=== PATIENT | male | born 1965 | race Caucasian/White ===

== ENCOUNTER 2023-09-23 15:02 | Emergency (ER) | payer BC, SELFPAY ==
[2023-09-23 15:16] VITALS: BP 115/69; PULSE 69; RESP 18; TEMP 36.3; O2SAT 96; BMI 24.4
--- NOTE | 2023-09-23 17:46 | CT_ITS ---
Patient: JOSE ALBERT Facility:?[facility] Patient ID:?[id number] Site Patient ID:?[id number]. Site :?[id number] Study:?CT-ST Neck w/ 95cc [id number]/15/2024 6:35:32 PM Ordering Physician:Candido Earl Final Report: INDICATION: Jaw/neck swelling. TECHNIQUE: CT of the neck with 95 cc Isovue 370 iodinated contrast agent. Coronal and sagittal reconstructions are included. COMPARISON: None. FINDINGS: There is left facial and submandibular region soft tissue swelling and inflammatory fat stranding. There is an oval low-density collection tracking along the left mandibular ramus medial surface/undersurface, located within the lingual side of the left laborer space and submandibular space which measures up to 24 x 26 millimeters in axial plane and 39 millimeters in craniocaudal plane. No discrete surrounding capsule. Findings compatible with left sublingual/submandibular cellulitis with phlegmon/early abscess. There is a left mandibular molar tooth extraction site, likely reflecting infectious source. Inflammatory changes extend into the left parapharyngeal space. Prominent left upper cervical lymph nodes, reactive in etiology. Oropharynx and nasopharynx within normal limits. The supraglottic, glottic and infraglottic larynx are normal. The airway including the trachea is normal and is patent. Parotid glands are normal. Right submandibular gland is normal. Left- sided submandibular gland as slightly enlarged, likely reflecting reactive inflammation. The thyroid gland is normal in appearance. The vascular structures opacify normally with contrast material. No suspicious lytic or blastic osseous lesions. Advanced disc degeneration C4-5, C5-6 and C6-7. Mild disc degeneration elsewhere. Visualized paranasal sinuses and mastoid air cells are clear. Visualized orbital and intracranial contents are normal. Supraclavicular regions, mediastinum and soft tissues of the imaged chest wall are normal. Visualized portions of the upper lungs are clear. IMPRESSION: 1. Findings compatible with left lingual side laborer/submandibular space cellulitis and accompanying deep fluid collection reflecting phlegmon/early abscess. Findings presumably related to left mandibular molar tooth extraction site. No evidence of airway compromise. Please note that all CT scans at this facility use dose modulation, iterative reconstruction, and/or weight-based dosing when appropriate to reduce radiation dose to as low as reasonably achievable. Dictated by Trace Lara MD @ 09/23/2023 7:03:39 PM Signed by:?Trace Lara MD @09/23/2023 7:03:39 PM (Electronic Signature)
--- NOTE | 2023-09-23 18:01 | ED_ITS ---
HPI - General Adult General Chief complaint: Dental/Oral/Mouth Injury/Pain Stated complaint: Infection post bottom left tooth extraction Time Seen by Provider: 09/23/23 17:42 Source: patient Mode of arrival: ambulatory Limitations: no limitations History of Present Illness HPI narrative: 58-year-old male presenting today with mouth pain. Patient had a tooth pulled about 2 weeks ago in the last couple days has noticed that he has had increased swelling of the left lower jaw. He has increasing pain and he is unable to open his mouth. He was started on amoxicillin yesterday the symptoms have gotten worse since. No fevers or chills. Patient tells me he has no medical problems, is not on any medications. He states that he has had an oral abscess in the past that required a drain. This also occurred after a dental extraction. Related Data Home Medications Medication Instructions Recorded Confirmed No Known Home Medications 09/23/23 09/23/23 Allergies Allergy/AdvReac Type Severity Reaction Status Date / Time No Known Drug Allergies Allergy Verified 09/23/23 15:20 Review of Systems Status of ROS: Reports: 10 or more systems reviewed and unremarkable except as noted in History and below [facility] Social History Smoking Status: Never smoker How often do you have a drink containing alcohol: monthly or less How often do you have six or more drinks on one occasion: Never AUDIT-C Alcohol total score: 1 Non-prescribed substance use: denies use Exam Narrative: Exam Narrative: Well-nourished well-developed patient in no acute distress. Alert and oriented. Answers questions appropriately. Mood and affect are appropriate. Thoughts are goal oriented and rational. No tangential or magical thinking noted. Patient speaks in full sentences without needing to catch breath. HEENT: Atraumatic. Pupils are equally round reactive to light. Extraocular muscles are intact. Conjunctivae are moist without any icterus noted. Moist mucous membranes. Patient's left lower draw is clearly significantly swollen. There is no overlying erythema of the skin. He cannot open his mouth more than not to talk secondary to discomfort. I cannot feel an obvious pocket of fluctuance along the lower gumline. He has tenderness at the site of the extracted tooth which is the last molar on the left lower jaw. Tenderness and swelling extends across the angle of the jaw down into the neck. He has tenderness along the lower jaw and distal to the lower jaw into the neck. Cardiovascular: Heart is regular rate and rhythm. Skin: Well perfused without any obvious rashes. Const: Vital Signs, click to edit/add: Vital Signs - 24 hr 09/23/23 15:16 09/23/23 19:16 Temperature 97.4 F L 98.4 F Pulse Rate [Right Pulse Oximeter] 69 57 L Respiratory Rate 18 16 Blood Pressure [Ri ght Upper Arm] 115/69 127/68 Pulse Oximetry 96 98 Oxygen Delivery Me thod Room Air Room Air Course Course ED Course: WBCs elevated at 17.7, a 5.6% neutrophils. Chemistries are normal. 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 Vital Signs Vital signs: Initial Vital Signs Temperature 97.4 F L 09/23/23 15:16 Temperature Source Temporal Artery Scan 09/23/23 15:16 Pulse Rate 69 09/23/23 15:16 Respiratory Rate 18 09/23/23 15:16 Blood Pressure 115/69 09/23/23 15:16 Blood Pressure Mean 84 09/23/23 15:16 Blood Pressure Position Sitting 09/23/23 15:16 Pulse Oximetry 96 09/23/23 15:16 Oxygen Delivery Method Room Air 09/23/23 15:16 Vital Signs Temperature 97.4 F L 09/23/23 15:16 Pulse Rate 69 09/23/23 15:16 Respiratory Rate 18 09/23/23 15:16 Blood Pressure 115/69 09/23/23 15:16 Pulse Oximetry 96 09/23/23 15:16 Oxygen Delivery Method Room Air 09/23/23 15:16 Temperature 98.4 F 09/23/23 19:16 Pulse Rate 57 L 09/23/23 19:16 Respiratory Rate 16 09/23/23 19:16 Blood Pressure 127/68 09/23/23 19:16 Pulse Oximetry 98 09/23/23 19:16 Oxygen Delivery Method Room Air 09/23/23 19:16 Medical Decision Making MDM Narrative Medical decision making narrative: Discussed patient with our ENT doctor Michel, who recommends patient be transferred to [facility]. I spoke to Dr. Martinez, who accepts the patient for transfer. Patient wishes to go by private conveyance so antibiotics were not started while he was here. We discussed going straight there without stopping at home. Patient and were understanding and have no other questions. Lab Data Labs: Lab Results 09/23/23 Range/Units 17:57 WBC 17.75 H (4.50-11.00) K/uL RBC 4.86 (4.30-5.90) m/uL Hgb 14.0 (13.5-17.5) gm/dL Hct 42.9 (37.0-53.0) % MCV 88 (80-100) fL MCH 29 (26-34) pg MCHC 33 (32-36) gm/dL RDW Coeff of Cade 13.4 (11.5-15.5) % Plt Count 298 (140-440) K/uL Neut % (Auto) 85.6 H (42.0-72.0) % Lymph % (Auto) 5.6 L (20-44) % [place] % (Auto) 8.3 (0.0-11.0) % Eos % (Auto) 0.2 (0.0-7.0) % Baso % (Auto) 0.1 (0.0-3.0) % Neut # (Auto) 15.20 H (1.7-7.0) K/uL Lymph # (Auto) 1.00 (0.90-2.90) K/uL [place] # (Auto) 1.50 H (0.00-0.90) K/UL Eos # (Auto) 0.00 (0.00-0.50) K/uL Baso # (Auto) 0.00 (0.00-0.30) K/uL Abs Immat Gran (auto) 0.00 (0.00-0.30) K/uL Imm/Tot Granulo (auto) 0.2 % Sodium 135 (135-149) mmol/L Potassium 3.9 (3.6-5.1) mmol/L Chloride 101 (96-114) mmol/L Carbon Dioxide 25 (20-32) mmol/L Anion Gap 9 (7-15) mEq/L BUN 20 (7-30) mg/dL Creatinine 0.8 (0.5-1.5) mg/dL Estimated Creat Clear 117.36 Estimated GFR 101 ml/min Glucose 112 (60-115) mg/dL Calcium 9.8 (8.4-10.6) mg/dL Imaging Data CT soft tissue neck: Attestation: I have reviewed the pertinent imaging results. Radiologist's impression: CT of the neck with 95 cc Isovue 370 iodinated contrast agent. Coronal and sagittal reconstructions are included. COMPARISON: None. FINDINGS: There is left facial and submandibular region soft tissue swelling and inflammatory fat stranding. There is an oval low-density collection tracking along the left mandibular ramus medial surface/undersurface, located within the lingual side of the left tool and die maker/designer space and submandibular space which measures up to 24 x 26 millimeters in axial plane and 39 millimeters in craniocaudal plane. No discrete surrounding capsule. Findings compatible with left sublingual/submandibular cellulitis with phlegmon/early abscess. There is a left mandibular molar tooth extraction site, likely reflecting infectious source. Inflammatory changes extend into the left parapharyngeal space. Prominent left upper cervical lymph nodes, reactive in etiology. Oropharynx and nasopharynx within normal limits. The supraglottic, glottic and infraglottic larynx are normal. The airway including the trachea is normal and is patent. Parotid glands are normal. Right submandibular gland is normal. Left- sided submandibular gland as slightly enlarged, likely reflecting reactive inflammation. The thyroid gland is normal in appearance. The vascular structures opacify normally with contrast material. No suspicious lytic or blastic osseous lesions. Advanced disc degeneration C4-5, C5-6 and C6-7. Mild disc degeneration elsewhere. Visualized paranasal sinuses and mastoid air cells are clear. Visualized orbital and intracranial contents are normal. Supraclavicular regions, mediastinum and soft tissues of the imaged chest wall are normal. Visualized portions of the upper lungs are clear. IMPRESSION: 1. 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 Findings presumably related to left mandibular molar tooth extraction site. No evidence of airway compromise. Discharge Plan Discharge Clinical Impression: Facial abscess Patient Disposition: Xfer Other Discharge Location: [facility] Condition: Stable Prescriptions: No Action No Known Home Medications Follow Up/Referrals: Provider,Not a Local [Primary Care Provider] - Stand Alone Forms: KILTR Info Instructions
[2023-09-23 18:07] LABS: Basophils Percent Auto 0.1 % (0.0-3.0); Eosinophils Percent Auto 0.2 % (0.0-7.0); Hematocrit 42.9 % (37.0-53.0); Immature Granulocytes Pct Auto 0.2 %; Lymphocytes Percent Auto 5.6 % (20-44); Mean Corpuscular HGB Conc 33 gm/dL (32-36); Mean Corpuscular Hemoglobin 29 pg (26-34); Mean Corpuscular Volume 88 fL (80-100); Monocytes Percent Auto 8.3 % (0.0-11.0); Neutrophils Percent Auto 85.6 % (42.0-72.0); Platelet Count* 298 K/uL (140-440); RDW Coefficient of Variation % 13.4 % (11.5-15.5); Red Blood Count 4.86 m/uL (4.30-5.90); White Blood Count* 17.75 K/uL (4.50-11.00)
[2023-09-23 18:14] LABS: Slide Review Reflex No
[2023-09-23 18:19] LABS: Chloride* 101 mmol/L (96-114); Potassium* 3.9 mmol/L (3.6-5.1); Sodium* 135 mmol/L (135-149)
[2023-09-23 18:22] LABS: Anion Gap 9 mEq/L (7-15); Blood Urea Nitrogen* 20 mg/dL (7-30); Carbon Dioxide* 25 mmol/L (20-32); Creatinine* 0.8 mg/dL (0.5-1.5); Est. Creatinine Clearance* 117.36; Estimated Glomerular Filt Rate 101 ml/min
[2023-09-23 18:23] LABS: Calcium* 9.8 mg/dL (8.4-10.6); Glucose* 112 mg/dL (60-115)
[2023-09-23 19:16] VITALS: BP 127/68; PULSE 57; RESP 16; TEMP 36.9; O2SAT 98
--- NOTE | 2023-09-23 20:42 | ED.NURSE ---
Report called to [facility].
== END 2023-09-23 19:58 | disposition other institution (70) ==
PROVIDERS: Emergency Provider Family Medicine
DX: K12.2 Cellulitis and abscess of mouth (principal)
CPT/HCPCS: 36415; 70491; 80048; 85025; 87040; 99284; Q9967